=== PATIENT | female | born 1985 | race Caucasian/White ===

== ENCOUNTER 2022-01-24 21:56 | Emergency (ER) | payer OTHER, MEDICAID ==
[~2022-01-24] VITALS: Ht 152.4 cm; Wt 78.0 kg
[2022-01-24 22:04] VITALS: BP_SYST 116
--- NOTE | 2022-01-24 22:04 | NUR ---
Patient to ER bed 02 to gown for evaluation. Side rails up.
--- NOTE | 2022-01-24 22:10 | NUR ---
Dr. Pro at bedside.
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
[2022-01-24] MEDS ORDERED: KETOROLAC TROMETHAMINE 60 MG/2 ML VIAL IM ONE (22:15)
[2022-01-24] MEDS ORDERED: KETOROLAC TROMETHAMINE 30 MG VIAL ONE (22:48)
[2022-01-24 22:53] LABS: BASOPHILS % (AUTO) 0.2 % (0.0-2.0); EOSINOPHILS # (AUTO) 0.1 K/uL (0.0-0.4); HEMATOCRIT 37.8 % (36-48); LYMPHOCYTES # (AUTO) 1.6 K/uL (1.0-5.5); MONOCYTES # (AUTO) 0.1 K/uL (0.0-1.0); RED BLOOD CELL COUNT(AUTO) 4.56 MIL/uL (4.2-6.2)
[2022-01-24 22:58] LABS: EOSINOPHILS % (AUTO) 0.8 % (0.0-4.0); HEMOGLOBIN 12.1 g/dL (12.0-16.0); LYMPHOCYTES % (AUTO) 12.4 % (20.5-51.5); MEAN CORPUSCULAR HEMOGLOBIN 27 pg (27-31); MEAN CORPUSCULAR HGB CONC 32 % (32-36); MEAN CORPUSCULAR VOLUME 83 fL (79.0-98.0); MONOCYTES % (AUTO) 0.9 % (1.7-9.3); NEUTROPHILS # (AUTO) 10.9 K/uL (1.8-7.7); NEUTROPHILS % (AUTO) 85.7 % (40.0-70.0); PLATELET COUNT (AUTO) 377 K/uL (130-430); RED CELL DISTRIBUTION WIDTH 14.8 % (9.0-15.0); WHITE BLOOD COUNT (AUTO) 12.8 K/uL (4.8-10.8)
[2022-01-24 23:02] LABS: CALCIUM 9.4 mg/dL (8.4-11.0); CREATININE 0.88 mg/dL (0.55-1.30); POTASSIUM 3.5 mmol/L (3.5-5.1)
[2022-01-24 23:08] LABS: ALBUMIN 3.8 g/dL (3.4-4.8); TOTAL BILIRUBIN 0.2 mg/dL (0.0-1.0)
--- NOTE | 2022-01-25 00:20 | NUR ---
Dr. Pro explaining results of tests to pt and family members. Questions answered.
[2022-01-25] MEDS ORDERED: NAPR-688 PO (00:27)
[2022-01-25 00:30] VITALS: BP_SYST 112
--- NOTE | 2022-01-25 00:30 | NUR ---
Patient given written and verbal discharge instructions and verbalizes understanding. ER MD discussed with patient the results and treatment provided. Patient in stable condition. ID arm band removed. Rx of Naproxen given. Patient educated on pain management and to follow up with PMD. Pain Scale 0/10. Opportunity for questions provided and answered. Medication side effect fact sheet provided.
== END 2022-01-25 00:30 | disposition home or self-care (01) ==
LOC: SED 21:56
DX: M17.12 Unilateral primary osteoarthritis, left knee (principal)
CPT/HCPCS: 36415; 73560; 80053; 83605; 85025; 85379; 87040; 93971; 96372; 99285; J1885 ×2

== ENCOUNTER 2024-06-14 12:53 | Emergency (ER) | payer OTHER, MEDICAID ==
[~2024-06-14] VITALS: Ht 142.2 cm; Wt 58.1 kg
[~2024-06-14 12:53] MED LIST: NAPR-688 PO
[2024-06-14 13:04] VITALS: BP_SYST 130; PULSE 94; RESP 17; TEMP 97.2; O2SAT 97
[2024-06-14 14:55] VITALS: BP_SYST 130; PULSE 94; RESP 17; TEMP 97.2; O2SAT 97
== END 2024-06-14 14:55 | disposition home or self-care (01) ==
LOC: SED 12:53
DX: S40.011A Contusion of right shoulder, initial encounter (principal); G80.9 Cerebral palsy, unspecified; Z79.899 Other long term (current) drug therapy; W18.39XA Other fall on same level, initial encounter; Y93.89 Activity, other specified; Y92.481 Parking lot as the place of occurrence of the external cause; Y99.8 Other external cause status
CPT/HCPCS: 73030; 99283